=== PATIENT | female | born 1995 | race Caucasian/White ===

== ENCOUNTER 2016-11-21 11:16 | Emergency (ER) | payer OTHER ==
[2016-11-21 12:57] VITALS: BP 104/63
--- NOTE | 2016-11-21 14:25 | UC ---
Throat Pain/Nasal Mike HPI - HPI Summary HPI Summary: Sore throat began yesterday, no body aches does not feel feverish - History of Current Complaint Chief Complaint: UCGeneralIllness Stated Complaint: SORE THROAT Time Seen by Provider: 11/21/16 14:23 Hx Obtained From: Patient Hx Last Menstrual Period: 11/15/16 ?: No Onset/Duration: Sudden Onset, Lasting Days - 1, Still Present Severity: Moderate Pain Intensity: 5 Pain Scale Used: 0-10 Numeric Cough: None Associated Signs & Symptoms: Positive: Negative - Allergies/Home Medications Allergies/Adverse Reactions: Allergies Allergy/AdvReac Type Severity Reaction Status Date / Time Clarithromycin [From Biaxin] Allergy Severe Vomiting Verified 11/21/16 12:57 Amoxicillin Allergy See Comment Verified 11/21/16 12:57 Sulfamethoxazole Allergy Unknown Verified 11/21/16 12:57 w/Trimethoprim Reaction [From Bactrim] Details seasonal Allergy Congestion Uncoded 11/21/16 12:57 Home Medications: Home Medications Ibuprofen TAB* [Advil TAB*] 400 mg PO Q6H PRN 11/21/16 [History Confirmed ] PMH/Surg Hx/FS Hx/Imm Hx Previously Healthy: Yes Endocrine History Of: Denies: Diabetes, Thyroid Disease Cardiovascular History Of: Denies: Cardiac Disorders, Hypertension Respiratory History Of: Denies: COPD, Asthma GI/ History Of: Denies: Ulcer - Surgical History Surgical History: Yes Surgery Procedure, Year, and Place: T&A, 2013, [facility] - Family History Known Family History: Positive: Hypertension - Social History Occupation: Employed Part-time, Student Lives: With Family Alcohol Use: None Substance Use Type: None Smoking Status (MU): Never Smoked Tobacco Household Exposure Type: Cigarettes - Immunization History Vaccination Up to Date: Yes Review of Systems Constitutional: Fatigue Skin: Negative Eyes: Negative ENT: Sore Throat Respiratory: Negative Cardiovascular: Negative Gastrointestinal: Negative Genitourinary: Negative Motor: Negative Neurovascular: Negative Musculoskeletal: Negative Neurological: Negative Psychological: Negative All Other Systems Reviewed And Are Negative: Yes Physical Exam Triage Information Reviewed: Yes Appearance: Well-Appearing, No Pain Distress, Well-Nourished Vital Signs: Initial Vital Signs Temp 97.0 F 11/21/16 12:51 Pulse 65 11/21/16 12:51 Resp 18 11/21/16 12:51 BP 104/63 11/21/16 12:51 Pulse Ox 100 11/21/16 12:51 Vital Signs Reviewed: Yes Eye Exam: Normal Eyes: Positive: Conjunctiva Clear ENT Exam: Normal ENT: Positive: Normal ENT inspection, Hearing grossly normal, Pharynx normal, TMs normal. Negative: Nasal congestion, Nasal drainage, Tonsillar swelling, Tonsillar exudate, Trismus, Muffled/hoarse voice Dental Exam: Normal Neck exam: Normal Neck: Positive: Supple, Nontender, No Lymphadenopathy Respiratory Exam: Normal Respiratory: Positive: Chest non-tender, Lungs clear, Normal breath sounds, No respiratory distress, No accessory muscle use Cardiovascular Exam: Normal Cardiovascular: Positive: RRR, No Murmur, Pulses Normal, Brisk Capillary Refill Musculoskeletal Exam: Normal Musculoskeletal: Positive: Strength Intact, ROM Intact, No Edema Neurological Exam: Normal Neurological: Positive: Alert, Muscle Tone Normal, Fatigued Psychological Exam: Normal Psychological: Positive: Normal Response To Family, Age Appropriate Behavior Skin Exam: Normal Diagnostics - Laboratory Diagnostic Studies Completed/Ordered: RST(-) Throat Pain/Nasal Course/Dx - Course Assessment/Plan: Rest increase fluids, prednisone for pain and inflammation in throat, follow with pcp or [facility], re-check prn - Differential Dx/Diagnosis Differential Diagnosis/HQI/PQRI: Influenza, Laryngitis, Pharyngitis, Sinusitis, URI Provider Diagnoses: Viral pharyngitis, Discharge - Discharge Plan Condition: Stable Disposition: HOME Prescriptions: predniSONE TAB* [Deltasone TAB*] 40 mg PO DAILY #6 tab Patient Education Materials: Pharyngitis (ED), Viral Syndrome (ED) Referrals: [facility] [Outside] - 5 Days Non Staff,Doctor [Primary Care Provider] -
[2016-11-21] MEDS ORDERED: Ibuprofen TAB* 600 MG PO ONE (14:29)
== END 2016-11-21 15:00 | disposition home or self-care (01) ==
LOC: UCCORT 11:16
DX: J02.8 Acute pharyngitis due to other specified organisms (principal); B34.9 Viral infection, unspecified; Z77.22 Contact with and (suspected) exposure to environmental tobacco smoke (acute) (chronic); Z88.1 Allergy status to other antibiotic agents; Z88.2 Allergy status to sulfonamides
CPT/HCPCS: 87651; 99212; A9270-GY; G0463

== ENCOUNTER 2016-12-26 09:33 | Emergency (ER) | payer OTHER ==
[2016-12-26 11:28] VITALS: BP 102/67
--- NOTE | 2016-12-26 12:23 | UC ---
Skin Complaint HPI - HPI Summary HPI Summary: painless swelling lower lip x days getting larger - History of Current Complaint Chief Complaint: UCSkin Time Seen by Provider: 12/26/16 12:06 Stated Complaint: SWOLLEN LIP Hx Obtained From: Patient Hx Last Menstrual Period: 12/22/16 Onset/Duration: Gradual Onset, Lasting Days Onset Severity: Mild Current Severity: Mild Pain Intensity: 0 Pain Scale Used: 0-10 Numeric Location: Discrete Character: Swelling, Raised Aggravating: Nothing Alleviating: Nothing Associated Signs & Symptoms: Positive: Negative - Allergy/Home Medications Allergies/Adverse Reactions: Allergies Allergy/AdvReac Type Severity Reaction Status Date / Time Clarithromycin [From Biaxin] Allergy Severe Vomiting Verified 11/21/16 12:57 Amoxicillin Allergy See Comment Verified 11/21/16 12:57 Sulfamethoxazole Allergy Unknown Verified 11/21/16 12:57 w/Trimethoprim Reaction [From Bactrim] Details seasonal Allergy Congestion Uncoded 11/21/16 12:57 Review of Systems Constitutional: Negative Skin: Negative Eyes: Negative ENT: Negative Respiratory: Negative Cardiovascular: Negative Gastrointestinal: Negative Genitourinary: Negative Motor: Negative Neurovascular: Negative Musculoskeletal: Negative Neurological: Negative Psychological: Negative All Other Systems Reviewed And Are Negative: Yes PMH/Surg Hx/FS Hx/Imm Hx Previously Healthy: Yes Endocrine History Of: Denies: Diabetes, Thyroid Disease Cardiovascular History Of: Denies: Cardiac Disorders, Hypertension Respiratory History Of: Denies: COPD, Asthma GI/ History Of: Denies: Ulcer - Surgical History Surgical History: Yes Surgery Procedure, Year, and Place: T&A, 2013, [facility] - Family History Known Family History: Positive: Hypertension - Social History Alcohol Use: None Substance Use Type: None Smoking Status (MU): Never Smoked Tobacco Household Exposure Type: Cigarettes - Immunization History Vaccination Up to Date: Yes Physical Exam Triage Information Reviewed: Yes Appearance: Well-Appearing, No Pain Distress Vital Signs: Initial Vital Signs Temp 98.0 F 12/26/16 11:21 Pulse 79 12/26/16 11:21 Resp 16 12/26/16 11:21 BP 102/67 12/26/16 11:21 Pulse Ox 98 12/26/16 11:21 Eyes: Positive: Conjunctiva Clear ENT: Positive: Hearing grossly normal, Pharynx normal, TMs normal. Negative: Nasal congestion, Nasal drainage, Trismus, Muffled/hoarse voice Dental: Positive: Other: - aphous ulcer lip swollen (marble size) not fluctuant/ scab external mucousa/no ulceration Course/Dx - Diagnoses Provider Diagnoses: lower lip selling of uncertain cause Discharge - Discharge Plan Condition: Stable Disposition: HOME Prescriptions: DOXYcycline CAP(*) [DOXYcycline 100MG CAP(*)] 100 mg PO BID #14 cap Referrals: Non Staff,Doctor [Primary Care Provider] - Additional Instructions: I am unsure if this is due to a cold sore (viral)/and infected lip (bacterial) or a plugged mucous gland take the doxy twice daily with food warm compresses don't squeeze recheck here for worsening symptoms or if not better in a week
== END 2016-12-26 12:26 | disposition home or self-care (01) ==
LOC: UCCORT 09:33
DX: R22.0 Localized swelling, mass and lump, head (principal); Z88.1 Allergy status to other antibiotic agents; Z88.2 Allergy status to sulfonamides; Z77.22 Contact with and (suspected) exposure to environmental tobacco smoke (acute) (chronic)
CPT/HCPCS: 87529; 99212; G0463

== ENCOUNTER 2017-11-12 09:29 | Emergency (ER) | payer OTHER ==
[2017-11-12 10:35] VITALS: BP 110/63
--- NOTE | 2017-11-12 11:00 | UC ---
FLU HPI - HPI Summary HPI Summary: Pt c/o sudden onset of nausea, vomiting X 1 fever, chills, sore throat that began last night. - History of Current Complaint Chief Complaint: UCGeneralIllness Stated Complaint: ST,COUGH,FEVER Time Seen by Provider: 11/12/17 10:26 Hx Obtained From: Patient Hx Last Menstrual Period: 11/04/17 ?: No Onset/Duration: Sudden Onset, Lasting Hours Severity Currently: Moderate Severity Initially: Moderate Pain Intensity: 8 Associated Signs & Symptoms: Positive: Fever, Myalgia, Sore Throat, Vomiting - X 1 Related Hx: Possible Flu/Infectious Exposure - Risk Factors Influenza Risk Factors: Negative - Allergy/Home Medications Allergies/Adverse Reactions: Allergies Allergy/AdvReac Type Severity Reaction Status Date / Time Clarithromycin [From Biaxin] Allergy Severe Vomiting Verified 11/12/17 10:23 Amoxicillin Allergy See Comment Verified 11/12/17 10:23 Sulfamethoxazole Allergy Unknown Verified 11/12/17 10:23 w/Trimethoprim Reaction [From Bactrim] Details seasonal Allergy Congestion Uncoded 11/12/17 10:23 Home Medications: Home Medications Norgestimate-Ethinyl Estradiol [Ortho-Cyclen] 1 tab PO QPM 11/12/17 [History Confirmed 11/12/17] [id number] W/ APAP [Vicks Dayquil Severe Cold] 2 tab PO BID PRN [History Confirmed 11/12/17] [id number] [Nyquil Severe Cold/Flu 5-6.25-10-325 mg/15Ml] 2 liq PO QPM PRN 11/12/17 [History Confirmed 11/12/17] PMH/Surg Hx/FS Hx/Imm Hx Previously Healthy: Yes - Surgical History Surgical History: Yes Surgery Procedure, Year, and Place: T&A, 2014, [facility] - Family History Known Family History: Positive: Hypertension - Social History Lives: With Family Alcohol Use: None Substance Use Type: None Smoking Status (MU): Never Smoked Tobacco Have You Smoked in the Last Year: No Household Exposure Type: Cigarettes - Immunization History Vaccination Up to Date: Yes Review of Systems Constitutional: Fever, Chills, Fatigue Skin: Negative Eyes: Negative ENT: Sore Throat Respiratory: Negative Cardiovascular: Negative Gastrointestinal: Abdominal Pain, Vomiting - X 1, Nausea Genitourinary: Negative Motor: Negative Neurovascular: Negative Musculoskeletal: Myalgia Neurological: Headache Psychological: Negative Is Patient Immunocompromised?: No All Other Systems Reviewed And Are Negative: Yes Physical Exam Triage Information Reviewed: Yes Appearance: Ill-Appearing Vital Signs: Initial Vital Signs Temp 100.2 F 11/12/17 10:29 Pulse 92 11/12/17 10:29 Resp 20 11/12/17 10:29 BP 110/63 11/12/17 10:29 Pulse Ox 98 11/12/17 10:29 Vital Signs Reviewed: Yes Eye Exam: Normal ENT Exam: Other ENT: Positive: Sinus tenderness Dental Exam: Normal Neck exam: Normal Respiratory Exam: Normal Cardiovascular Exam: Normal Abdominal Exam: Normal Abdomen Description: Positive: Nontender Musculoskeletal Exam: Normal Neurological Exam: Normal Psychological Exam: Normal Skin Exam: Normal Diagnostics - Laboratory Diagnostic Studies Completed/Ordered: Rapid flu: negative. Rapid strep: negative Flu Course/Dx - Course Course Of Treatment: RApid strep and rapid flu both negative. - Differential Dx/Diagnosis Differential Diagnosis/HQI/PQRI: Influenza, Upper Respiratory Infection, Other - viral syndrome Provider Diagnoses: Viral syndrome. fever Discharge - Discharge Plan Condition: Stable Disposition: HOME Patient Education Materials: Fever in Adults (ED), Viral Syndrome (ED) Forms: *School Release, *Work Release Referrals: [facility] [Outside] No Primary Care Phys,NOPCP [Primary Care Provider] - Additional Instructions: Please follow up with your PCP or return to clinic as needed. If you don't have a PCP we have provided a referral number for you. To help reduce the transmission of infectious diseases, please limit your contact with others over the next 2 days.
== END 2017-11-12 11:12 | disposition home or self-care (01) ==
LOC: UCCORT 09:29
DX: B34.9 Viral infection, unspecified (principal); R50.9 Fever, unspecified; Z88.1 Allergy status to other antibiotic agents; Z88.2 Allergy status to sulfonamides; Z77.22 Contact with and (suspected) exposure to environmental tobacco smoke (acute) (chronic)
CPT/HCPCS: 87502; 87651; 99211; G0463

== ENCOUNTER 2018-02-14 09:37 | Emergency (ER) | payer OTHER ==
[2018-02-14 10:09] VITALS: BP 105/71
--- NOTE | 2018-02-14 10:11 | ED ---
Throat Pain/Nasal Congestion - HPI Summary HPI Summary: 22 yr old with sore throat for almost three days. She has some pain in the right ear as well. She is concerned she could have strep throat. She denies fever. She denies drooling, hoarseness. She has no other complaints. - History of Current Complaint Chief Complaint: UCRespiratory Time Seen by Provider: 02/14/18 09:49 - Allergies/Home Medications Allergies/Adverse Reactions: Allergies Allergy/AdvReac Type Severity Reaction Status Date / Time amoxicillin Allergy See Comment Verified 02/14/18 10:05 clarithromycin [From Biaxin] Allergy Vomiting Verified 02/14/18 10:05 sulfamethoxazole Allergy Hives Verified 02/14/18 10:05 [From Bactrim] trimethoprim [From Bactrim] Allergy Hives Verified 02/14/18 10:05 seasonal Allergy Congestion Uncoded 02/14/18 10:05 PMH/Surg Hx/FS Hx/Imm Hx Endocrine/Hematology History: Denies: Hx Diabetes, Hx Thyroid Disease Cardiovascular History: Denies: Hx Hypertension Respiratory History: Denies: Hx Asthma, Hx Chronic Obstructive Pulmonary Disease (COPD) GI History: Denies: Hx Ulcer - Surgical History Surgery Procedure, Year, and Place: T&A, 2013, [facility] Infectious Disease History: No Infectious Disease History: Denies: Hx Hepatitis, Hx Human Immunodeficiency Virus (HIV), Traveled Outside the [place] in Last 30 Days - Family History Known Family History: Positive: Hypertension - Social History Occupation: Employed Full-time Alcohol Use: Occasionally Substance Use Type: Reports: None Smoking Status (MU): Never Smoked Tobacco Have You Smoked in the Last Year: No Review of Systems Constitutional: Negative Positive: Sore Throat, Ear Ache All Other Systems Reviewed And Are Negative: Yes Physical Exam Triage Information Reviewed: Yes Vital Signs On Initial Exam: Initial Vitals Temp Pulse Resp BP Pulse Ox 98.2 F 60 16 105/71 100 02/14/18 10:01 02/14/18 10:01 02/14/18 10:01 02/14/18 10:01 02/14/18 10:01 Vital Signs Reviewed: Yes Appearance: Positive: Well-Appearing, No Pain Distress Skin: Positive: Warm, Skin Color Reflects Adequate Perfusion Head/Face: Positive: Normal Head/Face Inspection Eyes: Positive: EOMI ENT: Positive: Pharyngeal erythema, TMs normal. Negative: Tonsillar swelling, Tonsillar exudate, Trismus, Muffled voice Neck: Positive: Nontender, No Lymphadenopathy Respiratory/Lung Sounds: Positive: Clear to Auscultation, Breath Sounds Present Cardiovascular: Positive: RRR. Negative: Murmur Musculoskeletal: Positive: Strength/ROM Intact Neurological: Positive: Sensory/Motor Intact, Alert, Oriented to Person Place, Time, CN Intact II-III Psychiatric: Positive: Normal - [place] Coma Scale Best Eye Response: 4 - Spontaneous Best Motor Response: 6 - Obeys Commands Best Verbal Response: 5 - Oriented Coma Scale Total: 15 Diagnostics - Vital Signs Vital Signs Temp Pulse Resp BP Pulse Ox 02/14/18 10:01 98.2 F 60 16 105/71 100 - Laboratory Lab Statement: Any lab studies that have been ordered have been reviewed, and results considered in the medical decision making process. EENT Course/Dx - Course Course Of Treatment: 22 yr old with negative rapid strep. Plan DC home. Good condition. FU with PMD. - Diagnoses Provider Diagnoses: Pharyngitis Discharge - Sign-Out/Discharge Documenting (check all that apply): Discharge/Admit/Transfer - Discharge Plan Condition: Good Disposition: HOME Patient Education Materials: Pharyngitis (ED) Referrals: BARBARA Childs [Primary Care Provider] - 3 Days - Billing Disposition and Condition Condition: GOOD Disposition: HOME
== END 2018-02-14 10:38 | disposition home or self-care (01) ==
LOC: UCCORT 09:37
DX: J02.9 Acute pharyngitis, unspecified (principal); Z88.3 Allergy status to other anti-infective agents; Z88.2 Allergy status to sulfonamides
CPT/HCPCS: 87651; 99211; G0463

== ENCOUNTER 2018-08-05 15:11 | Emergency (ER) | payer OTHER ==
[2018-08-05 16:06] VITALS: BP 113/68
--- NOTE | 2018-08-05 16:36 | UC ---
Complaint Female HPI - HPI Summary HPI Summary: The patient is a 22-year-old female with the onset of dysuria urgency and frequency that started this a.m. He denies any history of vaginal discharge or itching. She has had a history of a UTI. She had one episode of pyelonephritis in the past. Denies any fever or chills. She denies any nausea vomiting or diarrhea. She does denies any back or belly pain. - History Of Current Complaint Chief Complaint: UCGU Stated Complaint: URINARY Time Seen by Provider: 08/05/18 16:30 Hx Obtained From: Patient Hx Last Menstrual Period: on bcp- 02/14/18 Onset/Duration: Gradual Onset, Lasting Hours Timing: Constant Severity Initially: Mild Pain Intensity: 0 Pain Scale Used: 0-10 Numeric Character: Burning Aggravating Factor(s): Urination Associated Signs And Symptoms: Positive: Negative Related Hx: Similar Episode/Dx as: - UTI - Allergies/Home Medications Allergies/Adverse Reactions: Allergies Allergy/AdvReac Type Severity Reaction Status Date / Time amoxicillin Allergy See Comment Verified 02/14/18 10:05 clarithromycin [From Biaxin] Allergy Vomiting Verified 02/14/18 10:05 sulfamethoxazole Allergy Hives Verified 02/14/18 10:05 [From Bactrim] trimethoprim [From Bactrim] Allergy Hives Verified 02/14/18 10:05 seasonal Allergy Congestion Uncoded 02/14/18 10:05 PMH/Surg Hx/FS Hx/Imm Hx Previously Healthy: Yes - Surgical History Surgical History: Yes Surgery Procedure, Year, and Place: T&A, 2013, [facility] - Family History Known Family History: Positive: Hypertension - Social History Alcohol Use: Weekly Substance Use Type: None Smoking Status (MU): Never Smoked Tobacco Have You Smoked in the Last Year: No Household Exposure Type: Cigarettes - Immunization History Vaccination Up to Date: Yes Review of Systems Constitutional: Negative Skin: Negative Eyes: Negative ENT: Negative Respiratory: Negative Cardiovascular: Negative Gastrointestinal: Negative Genitourinary: Dysuria, Frequency, Urgency Motor: Negative Neurovascular: Negative Musculoskeletal: Negative Neurological: Negative Psychological: Negative All Other Systems Reviewed And Are Negative: Yes Physical Exam Triage Information Reviewed: Yes Appearance: Well-Appearing, No Pain Distress, Well-Nourished Vital Signs: Initial Vital Signs Temp 98.7 F 10/17/18 16:01 Pulse 72 08/05/18 16:01 Resp 15 08/05/18 16:01 BP 113/68 08/05/18 16:01 Pulse Ox 99 08/05/18 16:01 Vital Signs Reviewed: Yes Eyes: Positive: Conjunctiva Clear ENT: Positive: Hearing grossly normal. Negative: Nasal congestion, Nasal drainage, Trismus, Muffled voice, Hoarse voice Neck: Positive: Supple, Nontender, No Lymphadenopathy Respiratory: Positive: Lungs clear, Normal breath sounds, No respiratory distress, No accessory muscle use Cardiovascular: Positive: RRR, No Murmur Abdomen Description: Positive: Nontender, No Organomegaly, Soft. Negative: CVA Tenderness (R), CVA Tenderness (L) Bowel Sounds: Positive: Present Musculoskeletal: Positive: ROM Intact, No Edema Neurological: Positive: Alert Psychological Exam: Normal Skin Exam: Normal Complaint Female Dx - Course Course Of Treatment: UA tr blood, + nit, ++ leuks - Differential Dx/Diagnosis Provider Diagnoses: UTI Discharge - Sign-Out/Discharge Documenting (check all that apply): Patient Departure All imaging exams completed and their final reports reviewed: No Studies - Discharge Plan Condition: Stable Disposition: HOME Prescriptions: Nitrofurantoin Monohyd/M-Cryst [Macrobid 100 mg Capsule] 100 mg PO BID #10 cap Phenazopyridine TAB* [Pyridium TAB*] 100 mg PO TID #6 tab Patient Education Materials: Urinary Tract Infection in Women (ED) Referrals: No Primary Care Phys,NOPCP [Primary Care Provider] - Additional Instructions: recheck in 48 hours if not better recheck sooner if symptoms worsen - Billing Disposition and Condition Condition: STABLE Disposition: Home
--- NOTE | 2018-08-09 07:34 | UC ---
- Progress Note Progress Note: Urine cx + E. coli. Rx nitrofurantoin 08/05/18. + sens nitrofurantoin. RN to call pt, advise continue abx until completion. Seek medical attention if worse or new problems. F/u PCP when sx clear to ensure blood resolved. Discharge - Sign-Out/Discharge Documenting (check all that apply): Post-Discharge Follow Up All imaging exams completed and their final reports reviewed: No Studies - Discharge Plan Condition: Stable Disposition: HOME Prescriptions: Nitrofurantoin Monohyd/M-Cryst [Macrobid 100 mg Capsule] 100 mg PO BID #10 cap Phenazopyridine TAB* [Pyridium TAB*] 100 mg PO TID #6 tab Patient Education Materials: Urinary Tract Infection in Women (ED) Referrals: No Primary Care Phys,NOPCP [Primary Care Provider] - Additional Instructions: recheck in 48 hours if not better recheck sooner if symptoms worsen - Billing Disposition and Condition Condition: STABLE Disposition: Home
== END 2018-08-05 16:47 | disposition home or self-care (01) ==
LOC: UCCORT 15:11
DX: N39.0 Urinary tract infection, site not specified (principal); J30.2 Other seasonal allergic rhinitis; Z88.1 Allergy status to other antibiotic agents
CPT/HCPCS: 81003; 87077; 87086; 87186; 99212; G0463

== ENCOUNTER 2019-03-11 16:30 | Emergency (ER) | payer OTHER ==
[2019-03-11 16:50] VITALS: BP 118/67
--- NOTE | 2019-03-11 17:28 | ED ---
Respiratory - HPI Summary HPI Summary: 23 yr old female with the complaint of sore throat, runny nose, post nasal drip. No cough. no fever. No drooling. Symptoms are moderate. No other complaints. - History of Current Complaint Chief Complaint: UCRespiratory Stated Complaint: SORE THROAT, CONGESTION Time Seen by Provider: 03/11/19 16:54 Pain Intensity: 9 - Allergy/Home Medications Allergies/Adverse Reactions: Allergies Allergy/AdvReac Type Severity Reaction Status Date / Time amoxicillin Allergy See Comment Verified 03/11/19 16:50 clarithromycin [From Biaxin] Allergy Vomiting Verified 03/11/19 16:50 sulfamethoxazole Allergy Hives Verified 03/11/19 16:50 [From Bactrim] trimethoprim [From Bactrim] Allergy Hives Verified 03/11/19 16:50 Home Medications: Home Medications Guaifen/Phenyleph/Acetaminophn [Sinus Relief Press-Pain Caplet] 2 each PO ONCE PRN 03/11/19 [History Confirmed 03/11/19] PMH/Surg Hx/FS Hx/Imm Hx Endocrine/Hematology History: Denies: Hx Diabetes, Hx Thyroid Disease Cardiovascular History: Denies: Hx Hypertension Respiratory History: Denies: Hx Asthma, Hx Chronic Obstructive Pulmonary Disease (COPD) GI History: Denies: Hx Ulcer - Surgical History Surgery Procedure, Year, and Place: T&A, 2013, [facility] Infectious Disease History: No Infectious Disease History: Denies: Hx Hepatitis, Hx Human Immunodeficiency Virus (HIV), Traveled Outside the [place] in Last 30 Days - Family History Known Family History: Positive: Hypertension - Social History Occupation: Employed Full-time Alcohol Use: Weekly Substance Use Type: Reports: None Smoking Status (MU): Never Smoked Tobacco Have You Smoked in the Last Year: No Review of Systems Constitutional: Negative Positive: Sore Throat, Nasal Discharge All Other Systems Reviewed And Are Negative: Yes Physical Exam Triage Information Reviewed: Yes Vital Signs On Initial Exam: Initial Vitals Temp Pulse Resp BP Pulse Ox 98.5 F 77 14 118/67 100 03/11/19 16:45 03/11/19 16:45 03/11/19 16:45 03/11/19 16:45 03/11/19 16:45 Vital Signs Reviewed: Yes Appearance: Positive: Well-Appearing, No Pain Distress Skin: Positive: Warm, Skin Color Reflects Adequate Perfusion, Dry Head/Face: Positive: Normal Head/Face Inspection Eyes: Positive: EOMI, ARNIE ENT: Positive: Pharyngeal erythema, Nasal congestion, TMs normal, Uvula midline Neck: Positive: Nontender Respiratory/Lung Sounds: Positive: Clear to Auscultation, Breath Sounds Present Cardiovascular: Positive: RRR. Negative: Murmur Abdomen Description: Positive: Nontender. Negative: Distended Musculoskeletal: Positive: Strength/ROM Intact Neurological: Positive: Sensory/Motor Intact, Alert, Oriented to Person Place, Time, CN Intact II-III, Speech Normal Psychiatric: Positive: Normal - [place] Coma Scale Best Eye Response: 4 - Spontaneous Best Motor Response: 6 - Obeys Commands Best Verbal Response: 5 - Oriented Coma Scale Total: 15 Diagnostics - Vital Signs Vital Signs Temp Pulse Resp BP Pulse Ox 03/11/19 16:45 98.5 F 77 14 118/67 100 - Laboratory Lab Results: Lab Results 03/11/19 Range/Units 17:02 Group A Strep Rapid Negative (Negative) Lab Statement: Any lab studies that have been ordered have been reviewed, and results considered in the medical decision making process. Disposition - Course Course Of Treatment: 23 yr old with pharyngitis. neg strep. - Diagnoses Provider Diagnoses: Upper respiratory infection Discharge - Sign-Out/Discharge Documenting (check all that apply): Patient Departure All imaging exams completed and their final reports reviewed: No Studies - Discharge Plan Condition: Good Disposition: HOME Patient Education Materials: Upper Respiratory Infection (ED) Referrals: Maricarmen Hutchins MD [Primary Care Provider] - 2 Days - Billing Disposition and Condition Condition: GOOD Disposition: Home
== END 2019-03-11 17:50 | disposition home or self-care (01) ==
LOC: UCCORT 16:30
DX: J06.9 Acute upper respiratory infection, unspecified (principal); Z88.1 Allergy status to other antibiotic agents; Z88.0 Allergy status to penicillin; Z88.2 Allergy status to sulfonamides
CPT/HCPCS: 87651; 99211; G0463

== ENCOUNTER 2019-11-03 13:43 | Emergency (ER) | payer OTHER ==
[2019-11-03 14:04] VITALS: BP 111/65
--- NOTE | 2019-11-03 14:12 | UC ---
Throat Pain/Nasal Mike HPI - HPI Summary HPI Summary: Patient presents to urgent care with concern she has a sinus infection. Patient states for the last 36 hours she's had progressive sinus project congestion feeling very fatigued. Patient states she's had tactile fever. Patient's been taking [id number] NyQuil last night and ibuprofen today. Patient states she has had pressure popping in her ears and postnasal drip. Patient does report some mild body aches. Patient denies nausea vomiting. No cough. No sore throat. 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 Patient states she is not . Patient's medications is entered in EMR reviewed this visit. - History of Current Complaint Chief Complaint: UCGeneralIllness Stated Complaint: SINUS CONGESTION Time Seen by Provider: 11/03/19 14:04 Hx Obtained From: Patient Hx Last Menstrual Period: 10/27/19 ?: No Onset/Duration: Sudden Onset Severity: Mild Pain Intensity: 4 - Allergies/Home Medications Allergies/Adverse Reactions: Allergies Allergy/AdvReac Type Severity Reaction Status Date / Time amoxicillin Allergy See Comment Verified 03/11/19 16:50 clarithromycin [From Biaxin] Allergy Vomiting Verified 03/11/19 16:50 sulfamethoxazole Allergy Hives Verified 03/11/19 16:50 [From Bactrim] trimethoprim [From Bactrim] Allergy Hives Verified 03/11/19 16:50 Home Medications: Home Medications Buspirone HCl 10 mg PO DAILY 11/03/19 [History Confirmed 11/03/19] PMH/Surg Hx/FS Hx/Imm Hx Previously Healthy: Yes - Surgical History Surgical History: Yes Surgery Procedure, Year, and Place: T&A, 2013, [facility] - Family History Known Family History: Positive: Hypertension, Non-Contributory - Social History Occupation: Employed Full-time Lives: With Family Alcohol Use: Rare Substance Use Type: None Smoking Status (MU): Never Smoked Tobacco Have You Smoked in the Last Year: No Household Exposure Type: Cigarettes - Immunization History Vaccination Up to Date: Yes Review of Systems All Other Systems Reviewed And Are Negative: Yes Constitutional: Positive: Fever Skin: Positive: Negative Eyes: Positive: Negative ENT: Positive: Ear Ache, Nasal Discharge, Sinus Congestion Respiratory: Positive: Negative Musculoskeletal: Positive: Myalgia Physical Exam - Summary Physical Exam Summary: Vital Signs Reviewed: Yes A+Ox3, no distress, tired appearing Eyes: Conjunctiva Clear, ARNIE. EOM intact and full ENT: Hearing grossly normal TM x 2 visualized,fluid left TM, turbinate inflammed and boggy, + PND, mmoist, uvula midline, no exudate, no erythema Neck: Positive: Supple Respiratory: Positive: No respiratory distress, No accessory muscle use + CTA throughout no w/r Cardiovascular: RRR nl s1, s2 no m/r CBT <2 sec abd soft + BS nt/nd no guarding, no distension Musculoskeletal Exam: LEVINE x 4 without difficulty Strength Intact, ROM Intact Neurological: Positive: Alert, + sensation throughout Psychological: Positive: Normal Response To examiner Skin: Positive: no rash, no ecchymosis Triage Information Reviewed: Yes Vital Signs: Initial Vital Signs Temp 98.3 F 11/03/19 13:58 Pulse 85 11/03/19 13:58 Resp 16 11/03/19 13:58 BP 111/65 11/03/19 13:58 Pulse Ox 98 11/03/19 13:58 Throat Pain/Nasal Course/Dx - Course Course Of Treatment: Patient presents to urgent care for evaluation of concern for sinus infection. Patient states starting 36 hours ago she developed some body aches had congestion sore throat or ear pain. Patient's been taking NyQuil and ibuprofen without improvement. Patient reports fevers responsive to ibuprofen. Last dose this morning. On exam, VSS. Pt with sinus congestion - Differential Dx/Diagnosis Provider Diagnosis: Rhinosinusitis Discharge ED - Sign-Out/Discharge Documenting (check all that apply): Patient Departure All imaging exams completed and their final reports reviewed: No Studies - Discharge Plan Condition: Stable Disposition: HOME Prescriptions: DOXYcycline CAP(*) [DOXYcycline 100MG CAP(*)] 100 mg PO BID #20 cap Fluticasone NASAL SPRAY 50MCG* [Flonase NASAL SPRAY 50MCG*] 2 spray BOTH NARES DAILY #1 btl Patient Education Materials: Rhinosinusitis (ED) Forms: *Gen. Provider Communication, *Work Release Referrals: Maricarmen Hutchins MD [Primary Care Provider] - Additional Instructions: - Stay well hydrated. Drink plenty of non-alcoholic, non-caffinated beverages. - Alternate ibuprofen (Advil, Motrin) 600mg and Tylenol every 3 hours for pain or fever. Take with food. Do NOT take for more than 4-5 days. - These infections are spread by secretions - do NOT share eating or drinking utensils - clean items you share with other people such as cell phones, computer mouse, TV remote, computer tablets,etc. Once you have been antibiotics for 2 days, change your toothbrush and your pillowcase. - get plenty of restful sleep - humidify the air in the room where you sleep - boil water, run a hot steam shower, vaporizer, cups of water by heat register - okay to take over the counter decongestant and cough medication - use nasal spray as prescribed - contact your doctor or return with questions or concerns - Billing Disposition and Condition Condition: STABLE Disposition: Home
[2019-11-03] MEDS ORDERED: Acetaminophen TAB* 325 MG PO ONE (14:35)
[2019-11-03 14:50] LABS: Influenza A Molecular NEGATIVE (Negative); Influenza B Molecular NEGATIVE (Negative)
== END 2019-11-03 14:58 | disposition home or self-care (01) ==
LOC: UCCORT 13:43
DX: J32.9 Chronic sinusitis, unspecified (principal); Z88.0 Allergy status to penicillin; Z88.2 Allergy status to sulfonamides; Z88.1 Allergy status to other antibiotic agents
CPT/HCPCS: 99212; A9270-GY; G0463